=== PATIENT | female | born 1990 ===

== ENCOUNTER 2019-06-16 18:01 | Outpatient (REF) | payer MEDICAID, SELFPAY ==
[2019-06-19 12:05] LABS: C.trach, Misc, Amplified RNA Negative (Negative); N.gonorr, Misc, Amplified RNA Negative (Negative); SOURCE: THROAT
== END 2019-06-16 18:21 ==
LOC: NCHCN 18:01
PROVIDERS: PCP Nurse Practitioner Family; Visit Provider Family Medicine
DX: Z11.3 Encounter for screening for infections with a predominantly sexual mode of transmission (principal)
CPT/HCPCS: 87491; 87591

== ENCOUNTER 2019-06-17 16:32 | Outpatient (REF) | payer MEDICAID, SELFPAY ==
[2019-06-17 21:48] LABS: HCT 42.6 % (36.0-46.0); HGB 14.1 g/dL (12.0-15.5); Mean Corp. HGB Concentration 33.1 g/dL (32.0-36.0); Mean Corpuscular Hemoglobin 29.3 pg (27.0-33.0); Mean Corpuscular Volume 88.4 fL (80-95); Mean Platelet Volume 11.1 fL (8.0-11.0); Platelet Count 315 x1000/uL (130-400); RBC 4.82 m/cumm (4.00-5.20); RBC Distribution Width 12.5 % (11.7-14.6)
[2019-06-17 22:43] LABS: TSH (W/Ref FT4) 0.76 uIU/mL (0.358-3.74)
[2019-06-20 11:27] LABS: HSV Type 1 Ab, IgG Positive; HSV Type 2 Ab, IgG Positive
[2019-06-20 20:12] LABS: HSV Ab Screen, IGM by EIA Reactive (Negative)
[2019-06-21 16:17] LABS: HSV Ab, IgM by IFA Negative (Negative)
== END 2019-06-17 16:52 ==
LOC: NCHCN 16:32
PROVIDERS: PCP Nurse Practitioner Family; Visit Provider Family Medicine
DX: R63.4 Abnormal weight loss (principal); R23.8 Other skin changes; Z91.89 Other specified personal risk factors, not elsewhere classified; Z11.59 Encounter for screening for other viral diseases
CPT/HCPCS: 85027; 84443; 86694; 86695; 86696